=== PATIENT | female | born 1995 | race Caucasian/White ===

== ENCOUNTER 2023-03-25 23:50 | Observation (INO) | payer OTHER ==
[2023-03-26] MEDS ORDERED: Potassium Chloride 20 MEQ Tab.ER PO ONE ×3 (00:20→00:30)
[2023-03-26] MEDS: Potassium Chloride 20 MEQ Tab.ER PO SCH ×3 (00:45→02:33)
[2023-03-26 00:47] LABS: BASOPHILS ABSOLUTE AUTO 0.2 K/mm3 (0.0-0.2); BASOPHILS PERCENT AUTO 1.3 % (0.0-1.0); EOSINOPHILS ABSOLUTE AUTO 0.1 K/mm3 (0.0-0.4); EOSINOPHILS PERCENT AUTO 0.5 % (0.0-6.0); HEMATOCRIT 39.8 % (37.0-47.0); HEMOGLOBIN 14.5 gm/dl (12.0-16.0); IMMATURE GRAN ABSOLUTE AUTO 0.07 K/mm3 (0.00-0.05); IMMATURE GRAN PERCENT AUTO 0.5 % (0.0-0.4); LYMPHOCYTES ABSOLUTE AUTO 4.6 K/mm3 (1.0-4.8); LYMPHOCYTES PERCENT AUTO 30.4 % (24.0-44.0); MEAN CORPUSCULAR HEMOGLOBIN 36.2 pg (28.0-32.0); MEAN CORPUSCULAR HGB CONC 36.4 g/dl (32.0-36.0); MEAN CORPUSCULAR VOLUME 99.3 fl (83.0-99.0); MEAN PLATELET VOLUME 10.9 fl (9.4-12.3); MONOCYTES PERCENT AUTO 6.8 % (0.0-8.0); NEUTROPHILS ABSOLUTE AUTO 9.3 K/mm3 (1.8-7.7); NEUTROPHILS PERCENT AUTO 60.5 % (41.0-71.0); PLATELET COUNT,PLT 287 K/mm3 (150-400); RED BLOOD CELL COUNT 4.01 M/mm3 (4.10-5.30); WHITE BLOOD CELL COUNT,WBC 15.25 K/mm3 (3.9-11.3)
[2023-03-26 01:18] LABS: A/G RATIO 0.9 (1-2); ALANINE AMINOTRANSFERASE,ALT 115 U/L (14-59); ALBUMIN 3.7 g/dl (3.4-5.0); ALKALINE PHOSPHATASE 163 U/L (46-116); ANION GAP 11.5 (5-15); ASPARTATE AMNIOTRANSFERASE,AST 225 U/L (15-37); BILIRUBIN TOTAL 0.5 mg/dL (0.2-1.0); BLOOD UREA NITROGEN,BUN 8 mg/dL (7-18); CALCIUM 9.1 mg/dL (8.5-10.1); CARBON DIOXIDE,CO2 36 mEq/L (21-32); CHLORIDE,CL 93 mEq/L (98-107); CREATININE 0.8 mg/dL (0.55-1.02); EST CRCL DRUG DOSING (CG) 90.41 mL/min; ESTIMATED GFR 103 mL/min (>60); ETHANOL BLOOD MEDICAL 0.13 gm% (0.00); GLUCOSE RANDOM 101 mg/dL (70-99); MAGNESIUM 1.6 mg/dL (1.8-2.4); PROTEIN TOTAL,TP 7.7 g/dl (6.4-8.2); SODIUM,NA 138 mEq/L (136-145)
[2023-03-26 01:22] LABS: SLIDE REVIEW ABNORMAL SMEAR
[2023-03-26 01:30] LABS: HCG QUANTITATIVE < 1.0 mIU/mL; POTASSIUM,K 2.5 mEq/L (3.5-5.1)
[2023-03-26] MEDS ORDERED: Magnesium Sulfate/Water 2 GM in Premix Bag 1 BAG IV ONE (01:37)
[2023-03-26] MEDS ORDERED: Aluminum Hydroxide/Magnesium Hydroxide/Simethicone Susp 30 ML Cup PO ONE (02:40)
[2023-03-26] MEDS ORDERED: Famotidine 20 MG Tab PO ONE (02:42)
[2023-03-26 04:55] LABS: ANION GAP 12.5 (5-15); BUN/CREATININE RATIO 11.3 (14-18); CALCIUM 8.9 mg/dL (8.5-10.1); CREATININE 0.8 mg/dL (0.55-1.02); EST CRCL DRUG DOSING (CG) 90.41 mL/min; MAGNESIUM 2.5 mg/dL (1.8-2.4)
[2023-03-26 05:05] LABS: POTASSIUM,K 2.5 mEq/L (3.5-5.1)
[2023-03-26] MEDS ORDERED: Nicotine Polacrilex 2 MG Gum CHEW PRN (05:33)
[2023-03-26] MEDS ORDERED: Nicotine 21 MG/24 Hr Patch TRDERM SCH ×2 (05:45→06:00)
[2023-03-26] MEDS ORDERED: Nicotine Polacrilex 2 MG Gum CHEW ONE (05:45)
[2023-03-26] MEDS ORDERED: NS with KCl 40mEq 1,000 ML IV SCH (07:45)
[2023-03-26] MEDS ORDERED: Acetaminophen 325 MG Tab PO PRN (07:58)
[2023-03-26] MEDS ORDERED: Famotidine 20 MG Tab PO SCH (09:00)
[2023-03-26] MEDS ORDERED: Spironolactone 25 MG Tab PO SCH (09:00)
[2023-03-26] MEDS ORDERED: Potassium Chloride 20 MEQ Tab.ER PO SCH (09:00)
[2023-03-26] MEDS: Potassium Chloride 10 MEQ in Premix Bag 1 BAG IV SCH ×4 (09:35→13:56)
== END 2023-03-26 17:10 | disposition home or self-care (01) ==
LOC: JD.ED 23:50 → JD.MS 03-26 06:16
PROVIDERS: ADMIT Internal Medicine; ATTEND Internal Medicine
DX: K58.0 Irritable bowel syndrome with diarrhea (principal); E87.6 Hypokalemia; F10.920 Alcohol use, unspecified with intoxication, uncomplicated; G43.909 Migraine, unspecified, not intractable, without status migrainosus; E83.42 Hypomagnesemia; K74.60 Unspecified cirrhosis of liver; I85.10 Secondary esophageal varices without bleeding; M10.9 Gout, unspecified; F41.0 Panic disorder [episodic paroxysmal anxiety]; F32.A Depression, unspecified; F90.9 Attention-deficit hyperactivity disorder, unspecified type; Z88.8 Allergy status to other drugs, medicaments and biological substances; Z91.013 Allergy to seafood; Z79.899 Other long term (current) drug therapy; Z91.51 Personal history of suicidal behavior; Y90.0 Blood alcohol level of less than 20 mg/100 ml
CPT/HCPCS: 36415; 80048; 80053; 80307; 82570; 83735; 84132; 84133; 84443; 84702; 85025; 96365; 96366; 99285; A9270; J3475; J3480; 99282